=== PATIENT | male | born 1945 | race Caucasian/White ===

== ENCOUNTER 2020-06-02 06:39 | Outpatient (CLI) | payer OTHER, SELFPAY ==
--- NOTE | 2020-06-02 07:05 | CT_ITS ---
WS: [id number] CT HEAD NONCONTRAST HISTORY: HEADACHES TECHNIQUE: Contiguous axial imaging performed through the brain in 2.5 mm imaging. Bone and soft tiss ue windows. Sagittal and coronal reformats reviewed. All CT scans at [facility] use at ast one of these dose optimization techniques: automated exposure control; mA and/or kV adjustment pe r patient size (includes targeted exams where dose is matched to clinical indication); or iterative r econstruction. DLP: 780.66 mGy.cm COMPARISON: None available. No acute intracranial hemorrhage, midline shift or mass effect. Very mild atrophy and chronic ischemic disease. No loss of the perez-white matter differentiation. Ventricles: Normal size with no hydrocephalus. No inferior displacement of cerebellar tonsils. Paranasal sinuses: As visualized are clear. Mastoid air cells: Well pneumatized. Calvarium and scalp: Skull is intact with no soft tissue edema or swelling. Moderate atherosclerosis intracranial carotid arteries. CT/CT head wo con* [id number] IMPRESSION: 1. Mild atrophy and chronic ischemic disease. 2. No acute intracranial hemorrhage or edema.
--- NOTE | 2020-06-02 07:06 | USCV_ITS ---
Angelito Ferris Age: 74 Gender: M : 1945 Exam Date: 06/02/2020 07:20 Ordering Phys: Dulce Maria Linda MD Technologist: Gisele Sandoval Exam Location: [facility] [place] Indication: HEADACHES Risk Factors: Previous Vascular Surgery: Right Brachial BP: / Left Brachial BP: / Right Left Velocity (cm/s) Spectral Plaque Velocity (cm/s) Spectral Plaque Syst/Diast Broadening Syst/Diast Broadening 30.20/ 14.20 Prox CCA 44.80 / 17.80 49.50/ 24.80 Mid CCA 28.90 / 16.90 43.50/ 22.50 Distal CCA 19.10 / 10.00 32.40/ 15.70 Prox ICA 29.40 / 13.20 53.80/ 28.20 Mid ICA 64.40 / 23.30 51.60/ 28.40 Distal ICA 39.30 / 23.30 31.70 ECA 41.30 1.09 ICA/CCA 2.23 Antegrade Vertebral Antegrade 22.20/ 12.00 cm/s 39.60/ 20.20 cm/s Bi Subclavian Bi 23.90 44.30 FINDINGS No stenosis identified but this study is incomplete due to cardiac pump. Waveforms are all abnormal. Mild atherosclerosis. CONCLUSIONS Limited evaluation due to the cardiac pump. Mild atherosclerosiss. Dr. Nely Miller DO (Electronically Signed) Final Date: 02 June 2020 15:08 S
--- NOTE | 2020-06-02 08:17 | USCV_ITS ---
Angelito Ferris Age: 74 Gender: M : 1945 Exam Date: 06/02/2020 07:53 Ordering Phys: Dulce Maria Linda MD Technologist: Gisele Sandoval Exam Location: [facility] – [place] Indication: AAA SCREENING HISTORY: Diameter (cm) AP x Transverse x Length Velocity (cm/s) Waveform Prox Aorta: 1.67 x 2.32 x 53.80 Mid Aorta: 2.02 x 2.67 x 25.60 Distal Aorta: 1.75 x 2.04 x Right Iliac Prox: 1.06 x 1.45 x 35.50 Left Iliac Prox: 0.56 x 1.35 x 48.90 Stent Prox Landing x x Aneurysmal Sac Max x x Lt Lat Sac Dim Rt Lat Sac Dim Stent Dist Landing x x Right Iliac Stent x x Left Iliac Stent x x Right Renal Art Left Renal Art FINDINGS: Comparison: none available. The abdominal aorta could not be adequately visualized. limited by body habitus and cardiac pump. Abnormal waveforms due to the cardiac pump. CONCLUSIONS NO AAA.a Dr. Nely Miller DO (Electronically Signed) Final Date: 02 June 2020 15:06 S
== END 2020-06-02 06:40 | disposition home or self-care (01) ==
LOC: RAD 06:41
PROVIDERS: Visit Provider Family Medicine
DX: R51 Headache (principal); I71.4 Abdominal aortic aneurysm, without rupture; I70.90 Unspecified atherosclerosis; I67.82 Cerebral ischemia; G31.9 Degenerative disease of nervous system, unspecified
CPT/HCPCS: 70450; 76706; 93880